=== PATIENT | female | born 1995 | race Two or more races ===

== ENCOUNTER 2023-12-07 01:13 | Emergency (ER) | payer MEDICAID, OTHER ==
[~2023-12-07] VITALS: Ht 152.4 cm; Wt 56.6 kg
[2023-12-07 01:59] LABS: Urine Bacteria None Seen /hpf (None Seen)
[2023-12-07 02:02] LABS: Basophils # (auto) 0 10 ^3/uL (0-0.2); Eosinophils # (auto) 0.1 10 ^3/uL (0-0.8); Eosinophils % (auto) 0.9 % (0.0-7.0); Hematocrit 36.6 % (36.0-46.0); Mean Corpuscular Hemoglobin 28.9 pg (28.0-32.0)
[2023-12-07 02:04] LABS: Basophils % (auto) 0.4 % (0.0-2.0); Lymphocytes # (auto) 1.9 10 ^3/uL (0.4-5.4); Lymphocytes % (auto) 15.1 % (10.0-50.0); Mean Corpuscular Hgb Conc. 32.6 g/dL (32.0-36.0); Mean Corpuscular Volume 88.6 fL (80.0-100.0); Monocytes # (auto) 0.4 10 ^3/uL (0-1.3); Monocytes % (auto) 3.4 % (0.0-12.0); Neutrophils # (auto) 10.4 10 ^3/uL (1.6-8.6); Neutrophils % (auto) 80.2 % (37.0-80.0); Red Blood Cells 4.13 10^6/uL (4.0-5.20); Red Cell Distribution Width 13.9 % (11.8-14.3); White Blood Cell 12.9 10^3/uL (4.4-10.8)
[2023-12-07 02:08] LABS: Urine Blood 3+ /uL (Negative); Urine Clarity Turbid (Clear); Urine Color Colorless (Yellow); Urine Protein, UAD 1+ (Negative); Urine Specific Gravity 1.023 (1.001-1.035); Urine Urobilinogen Normal (Negative); Urine WBC 360 /hpf (0 - 5); Urine pH 6.5 (5.0-9.0)
[2023-12-07 02:11] LABS: Chloride 105 mmol/L (98-107); Potassium 3.4 mmol/L (3.5-5.1); Sodium 136 mmol/L (136-145)
[2023-12-07 02:12] LABS: Anion Gap 9 (5-15); Carbon Dioxide 22 mmol/L (20-30)
[2023-12-07 02:13] LABS: Calcium 9.4 mg/dL (8.5-10.1)
[2023-12-07 02:17] LABS: BUN/Creatinine Ratio 16.7 (10.0-20.0); Blood Urea Nitrogen 9 mg/dL (9-23); Glucose 102 mg/dL (74-106)
[2023-12-07] MEDS ORDERED: CEPH500C PO (02:35)
[2023-12-07 02:40] VITALS: BP 130/55; TEMP 98
[2023-12-07 02:47] VITALS: PULSE 92; RESP 18; O2SAT 99
[2023-12-07] MEDS ORDERED: IBU600T PO (02:53)
== END 2023-12-07 02:43 | disposition home or self-care (01) ==
LOC: ER 01:13
DX: O86.12 Endometritis following delivery (principal); J45.909 Unspecified asthma, uncomplicated
CPT/HCPCS: 36415; 80048; 81001; 85025